=== PATIENT | male | born 1935 | race Caucasian/White ===

== ENCOUNTER 2017-05-08 08:27 | Day surgery (SDC) | payer MEDICARE, OTHER ==
[~2017-05-08] VITALS: Ht 180.3 cm; Wt 70.5 kg
[~2017-05-08 08:27] MED LIST: CALCIUM W VIT D PO; COUMADIN2.5 M1 PO; COUMADIN3 MG PO; COUMADIN5 M2 PO; FISH OIL 1,0001 CA1 PO; IRON325 M2 PO; JET ALERT PO; LOVENOX100 MG/1 M SC; LOVENOX60 MG/0.1 SC; LOVENOX60 MG/0.6 SQ; MELATONIN5 M1 PO; MULTIVITAMINS1 EAC6 PO; NEURONTIN100 MG PO; NEURONTIN300 M1 PO; NORCO 5-325 TA1 EACH PO; OMEPRAZOLE20 M3 PO; PREDNISONE5 M1 PO; PRILOSEC OTC20 MG PO; RESTORIL30 MG PO; TYLENOL PM EX-1 EAC1 PO; ULTRAM50 MG PO; [UNRECOGNIZED DRUG - OTHER] PO
[2017-05-08 09:58] LABS: PROTHROMBIN TIME 11.6 SECONDS (9.0-13.6)
== END 2017-05-08 13:25 ==
LOC: SRG 08:27 → SHSC 08:27 → SRG 08:30 → SHSC 08:30 → PACU 11:50 → SHSC 12:09 → SRG 13:25
PROVIDERS: Anesthesiology
PROC: 0TC78ZZ Extirpation of Matter from Left Ureter, Via Natural or Artificial Opening Endoscopic (ICD-10-PCS; principal; 2017-05-08)
PROC: 0T778DZ Dilation of Left Ureter with Intraluminal Device, Via Natural or Artificial Opening Endoscopic (ICD-10-PCS; 2017-05-08)
DX: N20.1 Calculus of ureter (principal); I48.91 Unspecified atrial fibrillation; M19.90 Unspecified osteoarthritis, unspecified site; J44.9 Chronic obstructive pulmonary disease, unspecified; Z87.891 Personal history of nicotine dependence; Z88.8 Allergy status to other drugs, medicaments and biological substances; Z90.49 Acquired absence of other specified parts of digestive tract; Z98.49 Cataract extraction status, unspecified eye; Z79.899 Other long term (current) drug therapy; Z98.890 Other specified postprocedural states
CPT/HCPCS: C1769; C1894; C2617; J0690